=== PATIENT | female | born 1960 | race African-American/Black ===

== ENCOUNTER 2020-03-14 17:47 | Emergency (ER) | payer OTHER ==
[~2020-03-14] VITALS: Ht 152.4 cm; Wt 78.6 kg
[2020-03-14 19:10] VITALS: BP 151/99
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
== END 2020-03-14 23:20 | disposition home or self-care (01) ==
LOC: ER 17:47
DX: S13.4XXA Sprain of ligaments of cervical spine, initial encounter (principal); M54.6 Pain in thoracic spine; M79.644 Pain in right finger(s); E11.9 Type 2 diabetes mellitus without complications; E78.00 Pure hypercholesterolemia, unspecified; I10 Essential (primary) hypertension; V98.8XXA Other specified transport accidents, initial encounter; Y93.89 Activity, other specified; Y92.413 State road as the place of occurrence of the external cause; Y99.8 Other external cause status
CPT/HCPCS: 72040; 72072; 73140; 99284